=== PATIENT | male | born 1975 | race Hispanic/Latino ===

== ENCOUNTER → 2018-06-24 | Day surgery (SDC) | payer BC ==
[2018-06-23 08:42] LABS: BASOPHILS % 0.5 % (0.0-1.0); EOSINOPHILS # (AUTO) 0.1 (0.0-0.4); EOSINOPHILS % 1.4 % (0.0-6.0); HEMATOCRIT 46.8 % (38.2-49.6); HEMOGLOBIN 15.4 g/dL (14.0-18.0); LYMPHOCYTES # (AUTO) 2.2 (1.0-3.2); LYMPHOCYTES % 28.8 % (18.0-39.1); MEAN CORPUSCULAR HEMOGLOBIN 29.6 pg (28-32); MEAN CORPUSCULAR HGB CONC 32.9 g/dL (31-35); MEAN CORPUSCULAR VOLUME 89.8 fL (81-99); MONOCYTES # (AUTO) 0.8 (0.2-0.8); MONOCYTES % 10.6 % (4.4-11.3); NEUTROPHILS # (AUTO) 4.5 (2.1-6.9); NEUTROPHILS % 58.3 % (38.7-80.0); PLATELET COUNT 280 x10e3/uL (140-360); RED BLOOD COUNT 5.21 x10e6/uL (4.3-5.7); RED CELL DISTRIBUTION WIDTH 12.5 % (11.7-14.4)
[2018-06-23 08:44] LABS: BILIRUBIN,URINE NEGATIVE (NEGATIVE); CLARITY,URINE CLEAR (CLEAR); COLOR,URINE AMBER (YELLOW); KETONES,URINE NEGATIVE (NEGATIVE); LEUKOCYTE ESTERASE ,URINE NEGATIVE (NEGATIVE); NITRITE,URINE NEGATIVE (NEGATIVE); PROTEIN,URINE DIPSTICK NEGATIVE (NEGATIVE); URINE UROBILINOGEN 0.2 mg/dL (0.2 - 1)
[2018-06-23 09:00] LABS: ALANINE AMINOTRANSFERASE 161 IU/L (0-55); ALBUMIN 3.9 g/dL (3.5-5.0); ALBUMIN/GLOBULIN RATIO 1.1 (0.8-2.0); ALKALINE PHOSPHATASE 91 IU/L (40-150); ANION GAP 13.3 mmol/L (8-16); BLOOD UREA NITROGEN 13 mg/dL (7-26); BUN/CREATININE RATIO 15 (6-25); CALCIUM 9.7 mg/dL (8.4-10.2); CARBON DIOXIDE 26 mmol/L (22-29); CHLORIDE 104 mmol/L (98-107); CREATININE, SERUM 0.85 mg/dL (0.72-1.25); EST GLOMERULAR FILTRATION RATE > 60 ML/MIN (60-); GLUCOSE 99 mg/dL (74-118); POTASSIUM 4.3 mmol/L (3.5-5.1); SODIUM 139 mmol/L (136-145)
[~2018-06-24] MED LIST: BUPIVACAINE 0.25%/EPI 30ML SDV INJ ONE; DEXAMETHASONE SOD PHOS INJ 4 MG/ML VIAL ONE; FENTANYL CITRATE/PF 100MCG/2 ML INJ ONE; HYDROCODONE/APAP 7.5MG-325MG 1 EA TAB ONE; IOPAMIDOL 300MG/ML 50ML INFUS..BTL IV ONE; KETOROLAC TROMETHAMINE 30 MG/ML VIAL ONE; LOSARTAN POTASS25 MG PO; MIDAZOLAM HCL 2 MG/2 ML VIAL ONE; ONDANSETRON HCL INJ 2 MG/ML VIAL ONE; PROPOFOL IV EMULSION 10 MG/ML 20 ML VIAL ONE; ROCURONIUM BROMIDE 10 MG/ML 5ML VIAL ONE; SEVOFLURANE INHAL SOLN 250 ML PEN BTL ONE
--- NOTE | 2018-06-24 13:24 | Operative Report ---
DATE OF PROCEDURE: June 24, 2018 PREOPERATIVE DIAGNOSIS: Cholecystitis, cholelithiasis, and abnormal liver function tests, rule out common bile duct stones. POSTOPERATIVE DIAGNOSIS: Cholecystitis, cholelithiasis, no common bile duct stones. OPERATION PERFORMED: Laparoscopic cholecystectomy with intraoperative cholangiogram. TRUSS BUILDER: Dr. Michael Garza ANESTHESIA: General endotracheal. COMPLICATIONS: None. ESTIMATED BLOOD LOSS: Minimal. DESCRIPTION OF PROCEDURE: With the patient lying in bed in the supine position, under good general endotracheal anesthesia, the abdomen was prepped with Betadine solution and draped in the usual manner. A Veress needle was introduced into the right upper quadrant, and pneumoperitoneum was established without any difficulty. A 5-mm trocar was placed in the right subcostal region, and a 5-mm video laparoscope was placed into the intra-abdominal cavity. Video laparoscopy at this point revealed some omentum incarcerated in the known umbilical hernia that the patient had. It had been decided preoperatively that the hernia would not be fixed at this time so, therefore, an 11-mm trocar was then placed in the right side of the umbilicus away from the hernia. The 10-mm video laparoscope was then placed into the intra-abdominal cavity. Under direct vision, 2 more 5-mm trocars were placed in the right subcostal region. Video laparoscopy showed some mild fatty infiltration of the liver, the well known hernia and the gallbladder that was mostly covered up with adhesions. The gallbladder was rather long, and it contained multiple stones. There were no other abnormalities identified. The adhesions to the gallbladder were then slowly and carefully taken down. The peritoneum overlying the neck of the gallbladder was then opened, and the cystic duct was identified. The cystic duct was followed to the junction with the common duct. The cystic duct was then circumferentially dissected away from the common duct, and a clip was placed at the neck of the gallbladder. A small opening was made into the cystic duct. A cholangiocath was introduced without any difficulty. Under fluoroscopic guidance, half-strength dye was introduced into the biliary tree. This showed free flow of dye into the duodenum. No retained common duct filling defects. 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 The cholangiocath was then removed. The cystic duct was doubly clipped and divided. The cystic artery was then similarly doubly clipped and divided. The gallbladder was then slowly and carefully taken off the liver bed using the cautery scissors, and perfect hemostasis was ascertained. The gallbladder was then grasped through the paraumbilical port and removed without any difficulty. Video laparoscopy was then again carried out. The liver bed was found to be perfectly dry. All of the excess fluid was aspirated. The pneumoperitoneum was evacuated, and all the trocars were removed under direct vision. The midline fascia at the umbilicus was then closed with a [id number] of #0 Vicryl. All layers were infiltrated on the way out with solution of 1/4 percent Marcaine. Subcutaneous tissue was approximated with 3-0 Vicryl, and all puncture wounds were closed with subcuticular 5-0 Vicryl. Benzoin, Steri-Strips and Band-Aids were applied. The sponge, lap and needle count was correct. The patient tolerated the procedure well and returned to the recovery room in stable condition. Job#: [id number]
[2018-06-24 13:50] VITALS: BP 139/87
--- NOTE | 2018-06-25 08:19 | Diagnostic Imaging Report ---
PROCEDURE:CHOLANGIOGRAM T-TUBE/IMG INJ COMPARISON:None. INDICATIONS:Not provided. FINDINGS:C-arm fluoroscopy was provided for intraoperative cholangiogram. A single image was obtained demonstrating spill into the duodenum. No definite filling defects are identified. Please see the full report provided by the performing physician. Fluoroscopy time: 19 seconds Cumulative air kerma: 5.88 mGy CONCLUSION:C-arm fluoroscopy as described above. Be Cisneros D.O. Dictated by: Be Cisneros D.O. on 06/25/2018 at 8:25 Electronically approved by: Be Cisneros D.O. on 06/25/2018 at 8:25
== END | disposition home or self-care (01) ==
LOC: OR 08:13
PROVIDERS: ATTEND Surgery
DX: K80.10 Calculus of gallbladder with chronic cholecystitis without obstruction (principal); Z01.812 Encounter for preprocedural laboratory examination; I10 Essential (primary) hypertension
CPT/HCPCS: 36415; 47531; 47563; 80053; 81003; 85025; 88304; C1766; J1100; J1885; J2250; J2405; Q9967

== ENCOUNTER 2018-10-15 08:29 | Emergency (ER) | payer BC ==
[~2018-10-15] VITALS: Ht 177.8 cm; Wt 96.2 kg
[~2018-10-15 08:29] MED LIST changes: -BUPIVACAINE 0.25%/EPI 30ML SDV INJ ONE; -DEXAMETHASONE SOD PHOS INJ 4 MG/ML VIAL ONE; -FENTANYL CITRATE/PF 100MCG/2 ML INJ ONE; -HYDROCODONE/APAP 7.5MG-325MG 1 EA TAB ONE; -IOPAMIDOL 300MG/ML 50ML INFUS..BTL IV ONE; -KETOROLAC TROMETHAMINE 30 MG/ML VIAL ONE; -MIDAZOLAM HCL 2 MG/2 ML VIAL ONE; -ONDANSETRON HCL INJ 2 MG/ML VIAL ONE; -PROPOFOL IV EMULSION 10 MG/ML 20 ML VIAL ONE; -ROCURONIUM BROMIDE 10 MG/ML 5ML VIAL ONE; -SEVOFLURANE INHAL SOLN 250 ML PEN BTL ONE
--- OUTSIDE RECORDS SUMMARY | 2018-10-15 08:32 | XMS REPORT ---
Author Author [facility] Address Unknown Phone Unavailable Care Team Providers Care Bladder Changer Name Role Phone Cassie HAMEED Unavailable Unavailable Problems This patient has no known problems. Allergies, Adverse Reactions, Alerts This patient has no known allergies or adverse reactions. Medications This patient has no known medications. Results Test Description Test Time Test Comments Text Results Atomic Results Result Comments CHOLANGIOGRAM T-TUBE/IMG INJ 2018-06-25 08:25:00 [place] [address] Patient Name: DONALD THRASHER MR #: [id number] : 1975 Age/Sex: 42/M Req #: [id number] [facility] Physician: Ordered by: KAREN HAMEED MD Report #: [id number] Location: OR Room/Bed: Procedure: [id number] DX/CHOLANGIOGRAM T-TUBE/IMG INJ Exam Date: Exam Time: REPORT STATUS: Signed PROCEDURE: CHOLANGIOGRAM T-TUBE/IMG INJ COMPARISON: None. INDICATIONS: Not provided. FINDINGS: C-arm fluoroscopy was provided for intraoperative cholangiogram. A single image was obtained demonstrating spill into the duodenum. No definite filling defects are identified. Please see the full report provided by the performing physician. Fluoroscopy time: 19 seconds Cumulative air kerma: 5.88 mGy CONCLUSION: C-arm fluoroscopy as described above. Inés Cisneros D.O. Dictated by: Inés Cisneros D.O. on 06/25/2018 at 8:25 Electronically approved by: Inés Cisneros D.O. on 06/25/2018 at 8:25 Dictated By: INÉS CISNEROS DO 4 Transcribed By: JORDAN on 06/25/18824 COPY TO: KAREN HAMEED MD
[2018-10-15 09:28] VITALS: BP 153/95
== END 2018-10-15 09:32 | disposition home or self-care (01) ==
LOC: FSED 08:29
DX: M79.661 Pain in right lower leg (principal); I80.01 Phlebitis and thrombophlebitis of superficial vessels of right lower extremity
CPT/HCPCS: 99283